=== PATIENT | female | born 1945 | race Caucasian/White ===

== ENCOUNTER 2017-12-19 09:18 | Emergency (ER) | payer MEDICARE, OTHER ==
[~2017-12-19] VITALS: Ht 170.2 cm; Wt 77.1 kg
[2017-12-19 09:22] VITALS: BP 131/79
[2017-12-19 09:53] LABS: BASOPHILS # (AUTO) 0.2 /CMM (0.0-0.2); BASOPHILS % (AUTO) 1.9 % (0.0-2.0); EOSINOPHILS % (AUTO) 1.2 % (0.0-6.0); HEMATOCRIT 44 % (33-45); HEMOGLOBIN 14.3 g/dL (11.5-14.8); LYMPHOCYTES # (AUTO) 1.3 /CMM (0.8-4.8); LYMPHOCYTES % (AUTO) 11.8 % (20.0-44.0); MEAN CORPUSCULAR HEMOGLOBIN 30 PG (26.0-33.0); MEAN CORPUSCULAR HGB CONC 33 g/dl (31.0-36.0); MEAN CORPUSCULAR VOLUME 92 fL (82-100); MONOCYTES # (AUTO) 0.8 /CMM (0.1-1.30); MONOCYTES % (AUTO) 7.1 % (2.0-12.0); NEUTROPHILS # (AUTO) 8.5 /CMM (1.8-8.9); PLATELET COUNT (AUTO) 269 /CMM (150-450); RDW COEFFICIENT OF VARIATION 12.6 (11.5-15.0); RED BLOOD CELL COUNT(AUTO) 4.74 MIL/uL (4.0-5.2); WHITE BLOOD COUNT (AUTO) 10.9 K/uL (4.3-11.0)
[2017-12-19 10:02] LABS: CALCIUM, SERUM 9.3 mg/dL (8.5-10.1); CREATININE 1.2 mg/dL (0.6-1.3); POTASSIUM 4.2 mmol/L (3.5-5.1)
[2017-12-19] MEDS ORDERED: NA PHOS,M-B/NA PHOS,DI-BA 1 EA ENEMA RC ONE ×4 (11:30→14:36)
--- NOTE | 2017-12-19 12:15 | NUR ---
PT WAS GIVEN FLEET ENEMA, AND WAS EFFECTIVE.
== END 2017-12-19 14:42 | disposition home or self-care (01) ==
LOC: ER 09:22
DX: K59.00 Constipation, unspecified (principal)
CPT/HCPCS: 36415; 74018; 80048-TC; 85025-TC; A4606; Z7610

== ENCOUNTER 2020-10-28 18:22 | Emergency (ER) | payer BC, OTHER ==
[~2020-10-28] VITALS: Ht 167.6 cm; Wt 81.6 kg
--- NOTE | 2020-10-28 19:04 | NUR ---
BIBS FROM HOME TO ER BED 7. AAOX4. AMBULATORY. NOT IN RESP DISTRESS. CAME IN FOR COUGH, CONGETION AND SOB X 4 DAYS. PER PT, FEELS LIKE WHEN SHE HAD HER BRONCHITIS. PT IS NOTED ILYA. PT SATING @ 95-97% ON RA. PROVIDER WAS AT THE BEDSIDE FOR EVAL. ORDERS RECEIVED, NOTED AND CARRIED OUT.
[2020-10-28] MEDS ORDERED: predniSONE 10 MG TABLET ONE ×2 (19:18→21:12)
[2020-10-28] MEDS ORDERED: ALBUTEROL FS 2.5 MG/3 ML VIAL.NEB ONE (19:28)
[2020-10-28] MEDS ORDERED: IPRATROPIUM NEB FS 0.5 MG/2.5 ML AMPUL.NEB ONE (19:28)
[2020-10-28] MEDS ORDERED: IPRATROPIUM NEB FS 0.5 MG/2.5 ML AMPUL.NEB NEB ONE (19:30)
[2020-10-28] MEDS ORDERED: ALBUTEROL FS 2.5 MG/3 ML VIAL.NEB NEB ONE (19:30)
[2020-10-28] MEDS ORDERED: predniSONE 20 MG TABLET PO ONE ×2 (19:30→21:30)
[2020-10-28 20:01] LABS: BASOPHILS % (AUTO) 0.3 % (0.0-2.0); EOSINOPHILS % (AUTO) 4.4 % (0.0-6.0); HEMATOCRIT 42 % (33-45); HEMOGLOBIN 13.9 g/dL (11.5-14.8); LYMPHOCYTES # (AUTO) 1.3 /CMM (0.8-4.8); LYMPHOCYTES % (AUTO) 15.1 % (20.0-44.0); MEAN CORPUSCULAR HGB CONC 33 g/dl (31.0-36.0); MEAN CORPUSCULAR VOLUME 93 fL (82-100); MONOCYTES % (AUTO) 12.1 % (2.0-12.0); NEUTROPHILS # (AUTO) 5.8 /CMM (1.8-8.9); NEUTROPHILS % (AUTO) 68.1 % (43.0-81.0); PLATELET COUNT (AUTO) 206 /CMM (150-450); RED BLOOD CELL COUNT(AUTO) 4.47 MIL/uL (4.0-5.2); WHITE BLOOD COUNT (AUTO) 8.5 K/uL (4.3-11.0)
[2020-10-28 20:18] LABS: CALCIUM, SERUM 9.2 mg/dL (8.5-10.1); CARBON DIOXIDE 30 mmol/L (21-32); CHLORIDE 100 mmol/L (98-107); CREATININE 1.3 mg/dL (0.6-1.3); GLUCOSE 102 mg/dL (74-106); POTASSIUM 4.3 mmol/L (3.5-5.1); SODIUM SERUM 137 mmol/L (136-145); UREA NITROGEN, BLOOD 25 mg/dL (7-18)
[2020-10-28 20:36] LABS: NT-PRO BNP 35 pg/mL (0-125)
[2020-10-28] MEDS ORDERED: PRED20TA PO (21:07)
--- NOTE | 2020-10-28 21:20 | NUR ---
Patient discharged to home in stable condition. Written and verbal after care instructions given. Patient verbalizes understanding of instruction. Pt ambulatory with a steady gait
[2020-10-28 22:31] VITALS: BP 123/66
== END 2020-10-28 21:20 | disposition home or self-care (01) ==
LOC: ER 18:29
DX: J20.9 Acute bronchitis, unspecified (principal); M19.90 Unspecified osteoarthritis, unspecified site
CPT/HCPCS: 36415; 71045; 80048; 83880; 84484; 85025; 93005; 94640 ×2; 99285; J7512 ×2

== ENCOUNTER 2023-08-08 09:35 | Emergency (ER) | payer BC, MEDICAID ==
[~2023-08-08] VITALS: Ht 170.2 cm; Wt 77.1 kg
[~2023-08-08 09:35] MED LIST: PRED20TA PO
[2023-08-08 09:59] VITALS: TEMP 98.1
[2023-08-08] MEDS: IPRATROPIUM NEB FS 0.5 MG/2.5 ML AMPUL.NEB NEB ONE (10:30)
[2023-08-08] MEDS: ALBUTEROL FS 2.5 MG/3 ML VIAL.NEB NEB ONE (10:30)
[2023-08-08 10:41] LABS: BASOPHILS % (AUTO) 0.3 % (0.0-2.0); EOSINOPHILS % (AUTO) 0.3 % (0.0-6.0); HEMATOCRIT 40 % (33-45); HEMOGLOBIN 13.3 g/dL (11.5-14.8); LYMPHOCYTES # (AUTO) 0.4 K/uL (0.8-4.8); LYMPHOCYTES % (AUTO) 4.8 % (20.0-44.0); MEAN CORPUSCULAR HEMOGLOBIN 31 PG (26.0-33.0); MEAN CORPUSCULAR HGB CONC 33 g/dl (31.0-36.0); MEAN CORPUSCULAR VOLUME 93 fL (82-100); MONOCYTES # (AUTO) 0.9 K/uL (0.1-1.30); NEUTROPHILS # (AUTO) 7.3 K/uL (1.8-8.9); NEUTROPHILS % (AUTO) 84.6 % (43.0-81.0); PLATELET COUNT (AUTO) 200 K/uL (150-450); RED BLOOD CELL COUNT(AUTO) 4.32 MIL/uL (4.0-5.2); RED CELL DISTRIBUTION WIDTH 13.4 % (11.5-15.0); WHITE BLOOD COUNT (AUTO) 8.6 K/uL (4.3-11.0)
[2023-08-08 11:07] LABS: ALANINE AMINOTRANSFERASE 19 U/L (12-78); ALBUMIN 3.5 g/dL (3.4-5.0); ALKALINE PHOSPHATASE 95 U/L (46-116); ASPARTATE AMINOTRANSFERASE 16 U/L (15-37); BILIRUBIN,DIRECT 0.2 mg/dL (0.0-0.2); BILIRUBIN,TOTAL 0.7 mg/dL (0.2-1.0); CALCIUM, SERUM 9.2 mg/dL (8.5-10.1); CARBON DIOXIDE 27 mmol/L (21-32); CHLORIDE 100 mmol/L (98-107); CREATININE 1.2 mg/dL (0.6-1.3); GLUCOSE 142 mg/dL (74-106); NT-PRO BNP 513 pg/mL (0-125); POTASSIUM 3.9 mmol/L (3.5-5.1); SODIUM SERUM 137 mmol/L (136-145); TOTAL PROTEIN, SERUM 7.3 g/dL (6.4-8.2); UREA NITROGEN, BLOOD 18 mg/dL (7-18)
[2023-08-08] MEDS ORDERED: ALBU8.5H8 INH (11:39)
[2023-08-08] MEDS ORDERED: PRED50TA PO (11:39)
[2023-08-08 11:42] VITALS: O2SAT 96
[2023-08-08 11:53] VITALS: O2SAT 100
[2023-08-08 12:42] VITALS: BP 112/72; O2SAT 98
== END 2023-08-08 12:43 | disposition home or self-care (01) ==
LOC: ER 09:41
DX: J20.9 Acute bronchitis, unspecified (principal); I10 Essential (primary) hypertension; M19.90 Unspecified osteoarthritis, unspecified site
CPT/HCPCS: 36415; 71045-TC; 80048-TC; 80076-TC; 83880; 84484-TC; 85025-TC

== ENCOUNTER 2025-02-22 10:22 | Emergency (ER) | payer BC, MEDICAID ==
[~2025-02-22] VITALS: Ht 167.6 cm; Wt 79.4 kg
[~2025-02-22 10:22] MED LIST changes: +ALBU8.5H8 INH; +PRED50TA PO
[2025-02-22 10:29] VITALS: TEMP 98.3
[2025-02-22] MEDS ORDERED: ONDANSETRON HCL/PF 4 MG/2 ML VIAL ONE (10:40)
[2025-02-22] MEDS ORDERED: MECLIZINE HCL 25 MG TABLET ONE (10:41)
[2025-02-22] MEDS: ONDANSETRON HCL/PF 4 MG/2 ML VIAL IVP ONE (10:53)
[2025-02-22] MEDS: IV NS 0.9% 1,000 ML BAG IV ONE (10:53)
[2025-02-22 10:59] LABS: PLATELET COUNT (AUTO) 194 K/uL (150-450); RED BLOOD CELL COUNT(AUTO) 4.19 MIL/uL (4.0-5.2); RED CELL DISTRIBUTION WIDTH 13.3 % (11.5-15.0); WHITE BLOOD COUNT (AUTO) 12.8 K/uL (4.3-11.0)
[2025-02-22 11:09] LABS: CALCIUM, SERUM 8.9 mg/dL (8.5-10.1); CREATININE 1.2 mg/dL (0.6-1.3); SODIUM SERUM 138 mmol/L (136-145); UREA NITROGEN, BLOOD 18 mg/dL (7-18)
[2025-02-22 11:13] LABS: INR 1.02 (0.91-1.10)
[2025-02-22] MEDS ORDERED: ESCI20TA PO (11:14)
[2025-02-22] MEDS ORDERED: DICL75TA5 PO (11:14)
[2025-02-22] MEDS ORDERED: LISI1TAB29 PO (11:14)
[2025-02-22] MEDS ORDERED: MECL-159 PO (11:14)
[2025-02-22] MEDS ORDERED: ATOR20TA PO (11:14)
[2025-02-22 11:15] LABS: ASPARTATE AMINOTRANSFERASE 22 U/L (15-37); TOTAL PROTEIN, SERUM 6.8 g/dL (6.4-8.2)
[2025-02-22 11:23] LABS: CREATINE KINASE, TOTAL 73.0 U/L (26-192)
[2025-02-22] MEDS: MECLIZINE HCL 12.5 MG TABLET PO ONE (11:35)
[2025-02-22] MEDS ORDERED: IOHEXOL-350 100 ML VIAL IV ONE (12:14)
[2025-02-22] MEDS ORDERED: IV NS 0.9% 250 ML IV ONE (12:15)
[2025-02-22 14:00] VITALS: BP 148/68; O2SAT 97
== END 2025-02-22 16:36 | disposition short-term general hospital (02) ==
LOC: ER 10:22
DX: S02.119A Unspecified fracture of occiput, initial encounter for closed fracture (principal); S06.6X9A Traumatic subarachnoid hemorrhage with loss of consciousness of unspecified duration, initial encounter; I11.9 Hypertensive heart disease without heart failure; E78.5 Hyperlipidemia, unspecified; E04.2 Nontoxic multinodular goiter; Z79.899 Other long term (current) drug therapy; W18.39XA Other fall on same level, initial encounter; Y93.89 Activity, other specified; Y92.89 Other specified places as the place of occurrence of the external cause; Y99.8 Other external cause status
CPT/HCPCS: 99291; 72125; 96374; 71045; 96361; 99292; 93005; 73503; 70486; 70498; 70496; 85025; 80048; 82550; 80076; 36415; 84443; 84484; 85730; 70450; J8597; J2405; J7030 ×2; J7050; Q9967; 73502